=== PATIENT | female | born 1965 | race Caucasian/White ===

== ENCOUNTER → 2016-11-28 | Outpatient (CLI) | payer OTHER | LOC: FIMAGING 13:24 | PROVIDERS: ATTEND Family Medicine | DX: R94.5 Abnormal results of liver function studies (principal); E66.9 Obesity, unspecified; K76.0 Fatty (change of) liver, not elsewhere classified ==

== ENCOUNTER → 2016-12-17 | Outpatient (CLI) | payer OTHER | LOC: FIMAGING 08:47 | PROVIDERS: ATTEND Family Medicine | DX: Z12.31 Encounter for screening mammogram for malignant neoplasm of breast (principal); Z80.3 Family history of malignant neoplasm of breast | CPT/HCPCS: G0202 ==

== ENCOUNTER 2017-04-25 20:02 | Inpatient (IN) | payer OTHER ==
[2017-04-25] MEDS ORDERED: IPRATROPIUM/ALBUTEROL 3 ML DEYVIAL IH ONE (20:19)
[2017-04-25] MEDS ORDERED: ALBUTEROL 3 ML DEYVIAL IH ONE ×2 (20:30→21:24)
[2017-04-25] MEDS ORDERED: predniSONE 20 MG TAB PO ONE (20:30)
--- NOTE | 2017-04-25 20:40 | EDPHY ---
H & P Stated Complaint: Saturday SOB,cough &wheeze,Wed productive,temporal CORREA Time Seen by Provider: 04/25/17 20:16 HPI/ROS: CHIEF COMPLAINT: Cough, shortness of breath, headache HISTORY OF PRESENT ILLNESS: A 51-year-old female with a history of asthma presents reporting that she developed sinus congestion and upper respiratory infection symptoms 5 days ago. Developed a cough 4 days ago. Cough was productive of sputum 3 days ago. Patient reported asthma exacerbation with tightness in her chest starting yesterday. Today she notes increased sinus congestion and facial pain. Also reporting feeling poorly with headache, nausea , decreased appetite. No chest pain with the exception of a tightness related to which she feels is her asthma. No fever. Did receive an influenza vaccination this year. Denies body aches. Denies diarrhea. REVIEW OF SYSTEMS: Aside from elements discussed in the HPI, a comprehensive 10-point review of systems was reviewed and is negative. PAST MEDICAL HISTORY: Type 2 diabetes, asthma, significant dysmenorrhea. SOCIAL HISTORY: Former labor and delivery nurse, currently works as a business analysis analyst. VITAL SIGNS Reviewed by me. Initial heart rate 90, respiratory rate 16, temperature 37.3, O2 sat 91% on room air GENERAL: Well-developed, well-nourished, no obvious respiratory distress. Occasional cough. HEENT: Atraumatic. Eyes: No icterus, no injection. Mouth: moist mucous membranes. No erythema or lesions. Neck: supple with no adenopathy. LUNGS: Wheezy cough, diminished breath sounds. No rhonchi auscultated. CARDIAC: Regular rate and rhythm, systolic murmur. ABDOMEN: Soft, moderately obese, nontender, nondistended. BACK: No CVA tenderness. EXTREMITIES: No trauma. No edema. Range of motion is normal throughout. NEURO: Alert and oriented, grossly nonfocal. SKIN: Warm and dry, no rash. PSYCHIATRIC: Normal mentation, no agitation. - Personal History LMP (Females 10-55): IUD In Place Tetanus Vaccine Date: 2009 - Medical/Surgical History Hx Asthma: Yes Hx Chronic Respiratory Disease: No Hx Diabetes: Yes Hx Cardiac Disease: No Hx Renal Disease: No Hx Cirrhosis: No Hx Alcoholism: No Hx HIV/AIDS: No Hx Splenectomy or Spleen Trauma: No Other PMH: Asthma. DM2, kidney stones. shoulder repair, urinary stent, L knee scope x2 - Social History Smoking Status: Never smoked Constitutional: Initial Vital Signs Temperature (C) 37.3 C 04/25/17 20:09 Heart Rate 90 04/25/17 20:09 Respiratory Rate 16 04/25/17 20:09 Blood Pressure 121/76 H 04/25/17 20:09 O2 Sat (%) 91 L 04/25/17 20:09 O2 Delivery Mode Nasal Cannula O2 (L/minute) 2 Allergies/Adverse Reactions: tramadol [Tramadol] Allergy (Severe, Verified 01/21/16 18:18) Hives alprazolam [From Xanax] Allergy (Intermediate, Verified 04/25/17 20:07) Hives bacitracin [Bacitracin] Allergy (Intermediate, Verified 04/25/17 20:07) Hives hydrocodone bitartrate [From Vicodin] Allergy (Intermediate, Verified 04/25/17 20:07) Hives Latex, Natural Rubber Allergy (Intermediate, Verified 04/25/17 20:07) Rash mupirocin [From Bactroban] Allergy (Intermediate, Verified 04/25/17 20:07) Hives mupirocin calcium [From Bactroban] Allergy (Intermediate, Verified 04/25/17 20: 07) Hives neomycin [Neomycin] Allergy (Intermediate, Verified 04/25/17 20:07) Hives oxycodone HCl [From Percocet] Allergy (Intermediate, Verified 04/25/17 20:07) Hives polymyxin B Allergy (Intermediate, Verified 04/25/17 20:07) Hives promethazine HCl [From Phenergan] Allergy (Intermediate, Verified 04/25/17 20:07 ) Hives BENZOIN Allergy (Intermediate, Uncoded 04/25/17 20:07) Hives SHRIMP Allergy (Intermediate, Uncoded 04/25/17 20:07) Hives Home Medications: Medication Instructions Recorded Acetaminophen [Tylenol ES 500 mg 12/01/13 (*)] Albuterol Sulfate [Albuterol 12/01/13 Inhaler Hfa] Famotidine [Pepcid 20 MG (*)] 12/01/13 Valacyclovir HCl [Valtrex] 12/01/13 Zolpidem Tartrate [Ambien 10 mg] PRN 12/01/13 Fluticasone Nasal [Flonase Nasal 07/23/15 [place]] metFORMIN HCL [Glucophage 500 mg 1,000 07/23/15 (*)] ZYRTEC 01/21/16 Pulmicort 04/25/17 Medical Decision Making - Diagnostics EKG Interpretation: 12-LEAD EKG: Please see the full report in [facility]. My interpretation: Sinus tachycardia Imaging Results: Imaging Impressions Chest X-Ray 04/25/17 20:30 Impression: Mild peribronchial thickening, with questionable early airspace disease seen at the posterior lung base. ED Course/Re-evaluation: Patient received an albuterol neb and a DuoNeb. She was given 60 mg of prednisone by mouth. Influenza swab was sent. Following the neb treatments the patient reports improvement in her air flow. Influenza swab is positive for influenza A. Chest x-ray demonstrates peribronchial cuffing with questionable development of airspace disease on the lateral image in the posterior lung base . On re-examination the patient is now noted to be hypoxic to 87% on room air. This may be some somewhat the results of the neb treatments. She has also developed tachycardia with a heart rate of 111. IV was established and the patient received a L normal saline, as well as Tylenol. She was screened for sepsis. On initial evaluation, the patient was not tachycardic, tachypneic, or febrile. After receiving neb treatments, however, the patient developed tachycardia but also developed hypoxemia with a saturation of 86% on room air with a good waveform. She does have a lactic acid of 2.4 , with a normal white count, normal INR, normal creatinine, normal platelets, normal bilirubin. Severe Sepsis/Septic Shock Care Note The patient presents to the ED with influenza A identified as an acute infection. The patient did developed tachycardia and hypoxemia after receiving neb treatments. Her elevated heart rate, in conjunction with her hypoxemia resulted in a positive screen for sepsis. She does have an elevated lactic acid and thus met criteria for severe sepsis. This condition was identified by myself at 10:30 p.m.. The patients vital signs are 128/72, heart rate 102, respiratory rate 20, O2 sat as low as 86% on room air, temperature 37.3degrees. The patient has a venous lactic acid performed within 3 hours of the identification of sepsis which was found to be 2.4. The patient has blood cultures drawn but did not receive antibiotics as she has a positive influenza a screen. Patient's course was discussed with Dr. Ivan Medina. She will be admitted to the medicine service at [facility] for supportive care. Differential Diagnosis: Differential diagnosis for the patient's shortness of breath was considered including but not limited to pulmonary infectious processes, asthma exacerbation , influenza, pneumonia, bronchitis, pulmonary emboli, pulmonary edema, congestive heart failure, and cardiac causes. Consult/Admit Bed Type: Dr. Ivan Francisco, [facility] - Data Points Laboratory Results: Laboratory Results 04/25/17 21:35 04/25/17 21:35 04/25/17 04/25/17 04/25/17 21:35 21:35 21:35 WBC 4.67 10^3/uL 10^3/uL (3.80-9.50) RBC 3.73 10^6/uL L 10^6/uL (4.18-5.33) Hgb 13.2 g/dL g/dL (12.6-16.3) Hct 37.8 % L % (38.0-47.0) MCV 101.3 fL H fL (81.5-99.8) MCH 35.4 pg H pg (27.9-34.1) MCHC 34.9 g/dL g/dL (32.4-36.7) RDW 13.2 % % (11.5-15.2) Plt Count 83 10^3/uL L 10^3/uL (150-400) MPV 8.6 fL L fL (8.7-11.7) Neut % (Auto) 51.5 % % (39.3-74.2) Lymph % (Auto) 38.5 % % (15.0-45.0) [place] % (Auto) 9.4 % % (4.5-13.0) Eos % (Auto) 0.0 % L % (0.6-7.6) Baso % (Auto) 0.4 % % (0.3-1.7) Nucleat RBC Rel Count 0.0 % % (0.0-0.2) Absolute Neuts (auto) 2.40 10^3/uL 10^3/uL (1.70-6.50) Absolute Lymphs (auto) 1.80 10^3/uL 10^3/uL (1.00-3.00) Absolute Monos (auto) 0.44 10^3/uL 10^3/uL (0.30-0.80) Absolute Eos (auto) 0.00 10^3/uL L 10^3/uL (0.03-0.40) Absolute Basos (auto) 0.02 10^3/uL 10^3/uL (0.02-0.10) Absolute Nucleated RBC 0.00 10^3/uL 10^3/uL (0-0.01) Immature Gran % 0.2 % % (0.0-1.1) Immature Gran # 0.01 10^3/uL 10^3/uL (0.00-0.10) PT 13.7 SEC SEC (12.0-15.0) INR 1.06 (0.83-1.16) APTT 31.4 SEC SEC (23.0-38.0) VBG Lactic Acid Sodium 142 mEq/L mEq/L (134-144) Potassium 3.4 mEq/L L mEq/L (3.5-5.2) Chloride 102 mEq/L mEq/L (97-110) Carbon Dioxide 23 mEq/l mEq/l (22-31) Anion Gap 17 mEq/L H mEq/L (8-16) BUN 8 mg/dL mg/dL (7-23) Creatinine 0.6 mg/dL mg/dL (0.6-1.0) Estimated GFR > 60 Glucose 199 mg/dL H mg/dL (70-100) Calcium 9.0 mg/dL mg/dL (8.5-10.4) Total Bilirubin 0.6 mg/dL mg/dL (0.1-1.4) Influenza A,B Rapid 04/25/17 04/25/17 21:35 20:30 WBC RBC Hgb Hct MCV MCH MCHC RDW Plt Count MPV Neut % (Auto) Lymph % (Auto) [place] % (Auto) Eos % (Auto) Baso % (Auto) Nucleat RBC Rel Count Absolute Neuts (auto) Absolute Lymphs (auto) Absolute Monos (auto) Absolute Eos (auto) Absolute Basos (auto) Absolute Nucleated RBC Immature Gran % Immature Gran # PT INR APTT VBG Lactic Acid 2.4 mmol/L H mmol/L (0.7-2.1) Sodium Potassium Chloride Carbon Dioxide Anion Gap BUN Creatinine Estimated GFR Glucose Calcium Total Bilirubin Influenza A,B Rapid POSITIVE FOR FLU A H (NEGATIVE) Medications Given: Discontinued Medications Albuterol (Proventil Neb) 3 ml IH EDNOW ONE Stop: 04/25/17 20:31 Last Admin: 04/25/17 20:53 Dose: 3 ml Albuterol (Proventil Neb) 3 ml IH EDNOW ONE Stop: 04/25/17 21:25 Last Admin: 04/25/17 21:47 Dose: 3 ml Albuterol/Ipratropium (Duoneb) 3 ml IH EDNOW ONE Stop: 04/25/17 20:20 Last Admin: 04/25/17 20:33 Dose: 3 ml Sodium Chloride (Ns) 1,000 mls @ 0 mls/hr IV ONCE ONE; Wide Open PRN Reason: Protocol Stop: 04/25/17 21:55 Last Admin: 04/25/17 21:59 Dose: 1,000 mls Prednisone (Prednisone) 60 mg PO EDNOW ONE Stop: 04/25/17 20:31 Last Admin: 04/25/17 20:49 Dose: 60 mg Departure - Departure Disposition: [facility] Inpatient Acute Clinical Impression: Hypoxemia, Influenza A Dyspnea Qualifiers: Dyspnea type: shortness of breath Qualified Code(s): R06.02 - Shortness of breath; R06.00 - Dyspnea, unspecified; R06.01 - Orthopnea Referrals: Kandy Will MD [Primary Care Provider] - As per Instructions
--- NOTE | 2017-04-25 21:19 | CPEKG ---
Heart Rate: 108 RR Interval: 556 P-R Interval: 124 QRSD Interval: 84 QT Interval: 352 QTC Interval: 472 P [place]: 4 QRS [place]: 28 T Wave [place]: 2 EKG Severity - OTHERWISE NORMAL ECG - EKG Impression: SINUS TACHYCARDIA Electronically Signed By: Yogi Fuentes 26-Apr-2017 20:38:39
[2017-04-25] MEDS ORDERED: NS 1,000 ML IV ONE (21:54)
[2017-04-25 21:56] LABS: % IMMATURE GRANULYOCYTES 0.2 % (0.0-1.1); ABSOLUTE IMMATURE GRANULOCYTES 0.01 10^3/uL (0.00-0.10); ADD DIFF? NO; ADD MORPH? NO; ADD SCAN? NO; ATYPICAL LYMPHOCYTE FLAG 10 (0-99); FRAGMENT RBC FLAG 0 (0-99); HEMATOCRIT 37.8 % (38.0-47.0); HEMOGLOBIN 13.2 g/dL (12.6-16.3); LEFT SHIFT FLG 0 (0-99); LIPEMIA HEMOLYSIS FLAG 90 (0-99); MEAN CELL HEMOGLOBIN 35.4 pg (27.9-34.1); MEAN CELL HEMOGLOBIN CONCENTR. 34.9 g/dL (32.4-36.7); MEAN CELL VOLUME 101.3 fL (81.5-99.8); MEAN PLATELET VOLUME 8.6 fL (8.7-11.7); PLATELET CLUMPS FLAG 10 (0-99); PLATELET COUNT 83 10^3/uL (150-400); RED BLOOD CELL COUNT 3.73 10^6/uL (4.18-5.33); RED CELL DISTRIBUTION WIDTH 13.2 % (11.5-15.2)
[2017-04-25 22:08] LABS: INR 1.06 (0.83-1.16); PROTIME(PATIENT) 13.7 SEC (12.0-15.0)
[2017-04-25 22:09] LABS: APTT 31.4 SEC (23.0-38.0)
[2017-04-25 22:10] LABS: ANION GAP 17 mEq/L (8-16); BILIRUBIN,TOTAL 0.6 mg/dL (0.1-1.4); CARBON DIOXIDE 23 mEq/l (22-31); CHLORIDE 102 mEq/L (97-110); CREATININE 0.6 mg/dL (0.6-1.0); GLOMERULAR FILTRATION RATE > 60; GLUCOSE 199 mg/dL (70-100); POTASSIUM 3.4 mEq/L (3.5-5.2); SODIUM 142 mEq/L (134-144)
[2017-04-25] MEDS ORDERED: NS 3,100 ML IV ONE ×2 (22:25→22:53)
[2017-04-25] MEDS ORDERED: ACETAMINOPHEN 500 MG TAB PO ONE (22:29)
[2017-04-25] MEDS ORDERED: ONDANSETRON DISINTEGRATING 4 MG TAB PO PRN (22:35)
[2017-04-25] MEDS ORDERED: ONDANSETRON 4 MG/2 ML VIAL IVP PRN (22:35)
[2017-04-25 22:36] LABS: COLOR YELLOW; LEUKOCYTE ESTERASE,URINE 2+ (NEGATIVE); NITRITE,URINE NEGATIVE (NEGATIVE); PH,URINE 5.5 (5.0-7.5)
[2017-04-25 22:50] LABS: BACTERIA 1+ /hpf (NONE SEEN); MUCUS 1+ /lpf (NONE-1+)
--- NOTE | 2017-04-26 00:29 | PDGENHP ---
History and Physical - Chief Complaint Shortness of breath - History of Present Illness 51 yo F w/ asthma, NIDDM, and hypothyroid presents with fatigue and shortness of breath. Patient first noticed some congestion on Saturday. This was followed by cough, fatigue, and subjective fevers. As this progressed she also began to have shortness of breath, which became activity limiting earlier today. In the ED she was noted to be influenza A positive. She was also mildly hypoxic so she was admitted for observation. History Information - Allergies/Home Medication List Allergies/Adverse Reactions: tramadol [Tramadol] Allergy (Severe, Verified 01/21/16 18:18) Hives alprazolam [From Xanax] Allergy (Intermediate, Verified 04/25/17 20:07) Hives bacitracin [Bacitracin] Allergy (Intermediate, Verified 04/25/17 20:07) Hives hydrocodone bitartrate [From Vicodin] Allergy (Intermediate, Verified 04/25/17 20:07) Hives Latex, Natural Rubber Allergy (Intermediate, Verified 04/25/17 20:07) Rash mupirocin [From Bactroban] Allergy (Intermediate, Verified 04/25/17 20:07) Hives mupirocin calcium [From Bactroban] Allergy (Intermediate, Verified 04/25/17 20: 07) Hives neomycin [Neomycin] Allergy (Intermediate, Verified 04/25/17 20:07) Hives oxycodone HCl [From Percocet] Allergy (Intermediate, Verified 04/25/17 20:07) Hives polymyxin B Allergy (Intermediate, Verified 04/25/17 20:07) Hives promethazine HCl [From Phenergan] Allergy (Intermediate, Verified 04/25/17 20:07 ) Hives BENZOIN Allergy (Intermediate, Uncoded 04/25/17 20:07) Hives SHRIMP Allergy (Intermediate, Uncoded 04/25/17 20:07) Hives Home Medications: Acetaminophen [Tylenol ES 500 mg (*)] 12/01/13 [Last Taken Unknown] Albuterol Sulfate [Albuterol Inhaler Hfa] 12/01/13 [Last Taken Unknown] Famotidine [Pepcid 20 MG (*)] 12/01/13 [Last Taken 07/22/15] Valacyclovir HCl [Valtrex] 12/01/13 [Last Taken Unknown] Zolpidem Tartrate [Ambien 10 mg] PRN 12/01/13 [Last Taken 07/22/15] Fluticasone Nasal [Flonase Nasal [place]] 07/23/15 [Last Taken Unknown] metFORMIN HCL [Glucophage 500 mg (*)] 1,000 07/23/15 [Last Taken 07/23/15] ZYRTEC 01/21/16 [Last Taken Unknown] Pulmicort 04/25/17 [Last Taken Unknown] I have personally reviewed and updated: family history, medical history - Past Medical History asthma, diabetes type 2 - Family History Positive for: cancer - Social History Smoking Status: Never smoked Review of Systems Review of Systems: ROS: 10pt was reviewed & negative except for what was stated in HPI & below Physical Exam Physical Exam: Temp Pulse Resp BP Pulse Ox 37.0 C 88 16 112/67 93 04/26/17 00:17 04/26/17 00:17 04/26/17 00:17 04/26/17 00:17 04/26/17 00:17 O2 (L/minute) 2 Constitutional: no apparent distress, obese Eyes: PERRL, EOMI Ears, Nose, Mouth, Throat: moist mucous membranes, no oral mucosal ulcers Cardiovascular: regular rate and rhythym, no murmur, rub, or gallop Respiratory: no respiratory distress, expiratory wheeze (Mild, diffuse), rhonchi Gastrointestinal: normoactive bowel sounds, soft, non-tender abdomen Skin: warm, normal color Musculoskeletal: full muscle strength, no muscle tenderness Neurologic: AAOx3, CN II-XII Intact Psychiatric: interacting appropriately, not anxious Lab Data & Imaging Review 04/25/17 21:35 04/25/17 21:35 WBC 4.67 10^3/uL (3.80-9.50) 04/25/17 21:35 RBC 3.73 10^6/uL (4.18-5.33) L 04/25/17 21:35 Hgb 13.2 g/dL (12.6-16.3) 04/25/17 21:35 Hct 37.8 % (38.0-47.0) L 04/25/17 21:35 MCV 101.3 fL (81.5-99.8) H 04/25/17 21:35 MCH 35.4 pg (27.9-34.1) H 04/25/17 21:35 MCHC 34.9 g/dL (32.4-36.7) 04/25/17 21:35 RDW 13.2 % (11.5-15.2) 04/25/17 21:35 Plt Count 83 10^3/uL (150-400) L 04/25/17 21:35 MPV 8.6 fL (8.7-11.7) L 04/25/17 21:35 Neut % (Auto) 51.5 % (39.3-74.2) 04/25/17 21:35 Lymph % (Auto) 38.5 % (15.0-45.0) 04/25/17 21:35 [place] % (Auto) 9.4 % (4.5-13.0) 04/25/17 21:35 Eos % (Auto) 0.0 % (0.6-7.6) L 04/25/17 21:35 Baso % (Auto) 0.4 % (0.3-1.7) 04/25/17 21:35 Nucleat RBC Rel Count 0.0 % (0.0-0.2) 04/25/17 21:35 Absolute Neuts (auto) 2.40 10^3/uL (1.70-6.50) 04/25/17 21:35 Absolute Lymphs (auto) 1.80 10^3/uL (1.00-3.00) 04/25/17 21:35 Absolute Monos (auto) 0.44 10^3/uL (0.30-0.80) 04/25/17 21:35 Absolute Eos (auto) 0.00 10^3/uL (0.03-0.40) L 04/25/17 21:35 Absolute Basos (auto) 0.02 10^3/uL (0.02-0.10) 04/25/17 21:35 Absolute Nucleated RBC 0.00 10^3/uL (0-0.01) 04/25/17 21:35 Immature Gran % 0.2 % (0.0-1.1) 04/25/17 21:35 Immature Gran # 0.01 10^3/uL (0.00-0.10) 04/25/17 21:35 PT 13.7 SEC (12.0-15.0) 04/25/17 21:35 INR 1.06 (0.83-1.16) 04/25/17 21:35 APTT 31.4 SEC (23.0-38.0) 04/25/17 21:35 VBG Lactic Acid 3.5 mmol/L (0.7-2.1) H D 04/25/17 22:53 Sodium 142 mEq/L (134-144) 04/25/17 21:35 Potassium 3.4 mEq/L (3.5-5.2) L 04/25/17 21:35 Chloride 102 mEq/L (97-110) 04/25/17 21:35 Carbon Dioxide 23 mEq/l (22-31) 04/25/17 21:35 Anion Gap 17 mEq/L (8-16) H 04/25/17 21:35 BUN 8 mg/dL (7-23) 04/25/17 21:35 Creatinine 0.6 mg/dL (0.6-1.0) 04/25/17 21:35 Estimated GFR > 60 04/25/17 21:35 Glucose 199 mg/dL (70-100) H 04/25/17 21:35 Calcium 9.0 mg/dL (8.5-10.4) 04/25/17 21:35 Total Bilirubin 0.6 mg/dL (0.1-1.4) 04/25/17 21:35 Urine Color YELLOW 04/25/17 22:35 Urine Appearance CLEAR 04/25/17 22:35 Urine pH 5.5 (5.0-7.5) 04/25/17 22:35 Ur Specific [place] <= 1.005 (1.002-1.030) 04/25/17 22:35 Urine Protein NEGATIVE (NEGATIVE) 04/25/17 22:35 Urine Ketones NEGATIVE (NEGATIVE) 04/25/17 22:35 Urine Blood TRACE (NEGATIVE) H 04/25/17 22:35 Urine Nitrate NEGATIVE (NEGATIVE) 04/25/17 22:35 Urine Bilirubin NEGATIVE (NEGATIVE) 04/25/17 22:35 Urine Urobilinogen 0.2 EU (0.2-1.0) 04/25/17 22:35 Ur Leukocyte Esterase 2+ (NEGATIVE) H 04/25/17 22:35 Urine RBC 5-10 /hpf (0-3) H 04/25/17 22:35 Urine WBC 5-10 /hpf (0-3) H 04/25/17 22:35 Ur Epithelial Cells TRACE /lpf (NONE-1+) 04/25/17 22:35 Urine Bacteria 1+ /hpf (NONE SEEN) H 04/25/17 22:35 Urine Mucus 1+ /lpf (NONE-1+) 04/25/17 22:35 Urine Glucose NEGATIVE (NEGATIVE) 04/25/17 22:35 Influenza A,B Rapid POSITIVE FOR FLU A (NEGATIVE) H 04/25/17 20:30 Imaging Review: CXR w/ peribronchial thickening, possible early PNA in posterior lung base. Visualized and Interpreted EKG results: Yes EKG Interpretation: Positive for: normal sinsus rhythm Assessment & Plan Assessment: 51 yo F presents with asthma exacerbation 2/2 influenza. Plan: 1. Asthma with acute exacerbation - As a result of confirmed influenza A. Overall appears mild as patient is not in respiratory distress and only mildly hypoxic at this time. - Albuterol q4h scheduled + q2h PRN - Prednisone x5 days - Tamiflu despite late presentation 2/2 pulmonary disease and hospital admission - Restart home inhalers once returned to baseline 2. AHRF - Mild and related to above. Monitor and wean O2 as able. 3. NIDDM - On metformin 1000 BID as outpatient, will continue. 4. Hypothyroid - On LTX as outpatient. Diet - Regular Code - Full Ppx - LMWH Dispo - Admit to observation status
[2017-04-26] MEDS: ALBUTEROL 3 ML DEYVIAL IH SCH ×7 (00:48→21:36)
[2017-04-26] MEDS: OSELTAMIVIR PHOSPHATE 75 MG CAP PO SCH ×2 (01:09→09:14)
[2017-04-26 05:53] LABS: ANION GAP 12 mEq/L (8-16); CALCIUM 8.4 mg/dL (8.5-10.4); CARBON DIOXIDE 19 mEq/l (22-31); CHLORIDE 110 mEq/L (97-110); CREATININE 0.6 mg/dL (0.6-1.0); GLOMERULAR FILTRATION RATE > 60; GLUCOSE 332 mg/dL (70-100); SODIUM 141 mEq/L (134-144)
[2017-04-26 06:00] LABS: % IMMATURE GRANULYOCYTES 0.3 % (0.0-1.1); ABSOLUTE IMMATURE GRANULOCYTES 0.01 10^3/uL (0.00-0.10); ADD DIFF? NO; ADD MORPH? NO; ADD SCAN? NO; ATYPICAL LYMPHOCYTE FLAG 30 (0-99); FRAGMENT RBC FLAG 0 (0-99); HEMATOCRIT 36.4 % (38.0-47.0); HEMOGLOBIN 12.6 g/dL (12.6-16.3); LEFT SHIFT FLG 30 (0-99); LIPEMIA HEMOLYSIS FLAG 90 (0-99); MEAN CELL HEMOGLOBIN 35.7 pg (27.9-34.1); MEAN CELL HEMOGLOBIN CONCENTR. 34.6 g/dL (32.4-36.7); MEAN CELL VOLUME 103.1 fL (81.5-99.8); MEAN PLATELET VOLUME 9.1 fL (8.7-11.7); PLATELET CLUMPS FLAG 0 (0-99); PLATELET COUNT 70 10^3/uL (150-400); RED BLOOD CELL COUNT 3.53 10^6/uL (4.18-5.33); RED CELL DISTRIBUTION WIDTH 13.2 % (11.5-15.2)
[2017-04-26] MEDS ORDERED: metFORMIN HCL 500 MG TAB PO SCH (08:00)
[2017-04-26] MEDS ORDERED: ENOXAPARIN 40 MG/0.4 ML SYR SC SCH (09:00)
[2017-04-26] MEDS: predniSONE 20 MG TAB PO SCH (09:14)
[2017-04-26] MEDS ORDERED: NS 1,000 ML IV SCH (10:45)
[2017-04-26] MEDS: ACETAMINOPHEN 325 MG TAB PO PRN ×2 (11:17→22:56)
[2017-04-26] MEDS ORDERED: D50W 25 GM/50 ML SYR IVP PRN (12:15)
[2017-04-26] MEDS: INSULIN REGULAR HUMAN 100 UNIT/ML SC SCH ×3 (12:30→21:21)
--- NOTE | 2017-04-26 14:18 | ASMTCMCOM ---
CM Note CM Note Notes: 04/26/2017 Case Management Note Reviewed chart. There are no case management d/c needs identified d/t pt age, employment status and activity levels prior to admission. There are no PT or OT evals ordered at this time. Case Management d/c poc: Home independent when medically stable with follow up as directed. Case Management available if needs change. Date Signed: 04/26/2017 02:18 PM Electronically Signed By:María Troy RN
[2017-04-26] MEDS ORDERED: GUAIFENESIN/DM 10 ML UDCUP PO PRN (16:03)
--- NOTE | 2017-04-26 16:33 | PDMN ---
Medical Necessity Medical necessity: Patient meets INPT criteria per phyician note and MCG M-60 Asthma - (asthma exacerbation w/ URT symptoms; hypoxemia/O2 sat 87% on RA in ED ; metabolic acidosis/lactic acid to 3.5 on admission; positive for Influenza A; LOS will be > 2 midnights for ongoing supplemental O2 need, IV hydration, Tamiflu.)
[2017-04-26] MEDS: BENZONATATE 100 MG CAP PO PRN (21:29)
--- NOTE | 2017-04-26 22:21 | HOSPPROG ---
Hospitalist Progress Note Assessment/Plan: Assessment: 51 yo F presents with asthma exacerbation 2/2 influenza. Plan: 1. Asthma with acute exacerbation. Evidenced by expiratory wheezes, hypoxia ( SpO2 87% on RA), cough, 2/2 influenza - Cont Pred 2/5, cont scheduled nebs and PRN albuterol - remains clinically unresolved, requiring ongoing supplemental oxygen 2/2 hypoxia 2. Influenza A. Given severity of illness, cont Tamiflu D#2/ 3. Metabolic Acidosis. 2/2 lactic acid, unclear whether 2/2 hypotension vs. metformin effect in setting of infxn - repeat vLact 3.0 when not hypotensive, indicating possibly 2/2 metformin - cont 1/2 NS for clearance - repeat level in AM, or if hypotensive - temporarily hold metformin 4. DM2 w/ hyperglycemia. Stop metformin given lactic acidosis, start ISS 4. Hypothyroid - On LTX as outpatient. Diet - Regular Code - Full Ppx - LMWH Dispo. Upgrade to inpatient admission status re: anticipated LOS > 48hrs for reasonable medical necessity for unresolved asthma exacerbation and metabolic acidosis. Subjective: patient resports ongoing cough, feels short of breath w/ activity Objective: Vital Signs Temp Pulse Resp BP Pulse Ox 36.7 C 95 18 127/64 H 95 04/26/17 19:27 04/26/17 21:39 04/26/17 21:39 04/26/17 19:27 04/26/17 21:39 04/25/17 04/26/17 04/27/17 05:59 05:59 05:59 Intake Total 960 Balance 960 PT 13.7 SEC (12.0-15.0) 04/25/17 21:35 INR 1.06 (0.83-1.16) 04/25/17 21:35 - Physical Exam Constitutional: no apparent distress, appears nourished, chronically ill appearing, uncomfortable Cardiovascular: regular rate and rhythym, no murmur, rub, or gallop, No edema Respiratory: reduced air movement (on expiration), other (cough triggered w/ expiration), No expiratory wheeze, No bronchial breath sounds, No respiratory distress Gastrointestinal: normoactive bowel sounds, soft, non-tender abdomen, no palpable masses Neurologic: AAOx3, sensation intact bilaterally, No weakness, No facial droop Psychiatric: interacting appropriately, not anxious, not encephalopathic, thought process linear ICD10 Worksheet Patient Problems: Problems Problem Status Onset Hypoxemia Acute Kidney stone Acute UTI (urinary tract infection) Acute Influenza A Acute Dyspnea Acute
[2017-04-26] MEDS ORDERED: 1/2 NS 1,000 ML IV SCH (22:30)
[2017-04-26] MEDS ORDERED: BUDESONIDE 0.25MG/2ML DEYVIAL (5/POUCH) IH PRN (22:44)
[2017-04-27] MEDS: BENZONATATE 100 MG CAP PO PRN ×3 (04:54→21:16)
[2017-04-27] MEDS: LEVOTHYROXINE 50 MCG TAB PO SCH (04:54)
[2017-04-27 06:17] LABS: ANION GAP 8 mEq/L (8-16); CALCIUM 8.6 mg/dL (8.5-10.4); CARBON DIOXIDE 25 mEq/l (22-31); CHLORIDE 110 mEq/L (97-110); CREATININE 0.6 mg/dL (0.6-1.0); GLOMERULAR FILTRATION RATE > 60; GLUCOSE 106 mg/dL (70-100); SODIUM 143 mEq/L (134-144)
[2017-04-27] MEDS: predniSONE 20 MG TAB PO SCH (08:40)
[2017-04-27] MEDS: MULTIVITAMINS 1 EACH TAB PO SCH (08:40)
[2017-04-27] MEDS: INSULIN REGULAR HUMAN 100 UNIT/ML SC SCH ×4 (08:40→21:17)
[2017-04-27] MEDS: OSELTAMIVIR PHOSPHATE 75 MG CAP PO SCH ×2 (08:40→21:16)
[2017-04-27] MEDS: ALBUTEROL 3 ML DEYVIAL IH SCH ×4 (08:49→22:08)
[2017-04-27] MEDS ORDERED: Herbals/Supplements -Info Only PO SCH (09:00)
[2017-04-27] MEDS: FLUTICASONE NASAL 120 SPRAYS/16 GM MDI EACHNARE SCH (10:28)
--- NOTE | 2017-04-27 11:04 | HOSPPROG ---
Hospitalist Progress Note Assessment/Plan: # flu A with RAD exacerbation - agree with tamiflu and prednisone - recheck CXR given crackles (although they cleared with cough) - check pct - still hypoxic # thrombocytopenia - acute on chronic - follow, partly d/t influenza # lactic acidosis - resolved # DM2 - hold metformin, cont SSI # hypothyroid - synthroid Subjective: did not rest well; continues to feel poorly; desats without O2 Objective: Vital Signs Temp Pulse Resp BP Pulse Ox 36.8 C 82 18 107/71 94 04/27/17 09:02 04/27/17 09:02 04/27/17 09:02 04/27/17 09:02 04/27/17 09:02 Laboratory Results 04/27/17 05:36 04/26/17 04/27/17 04/28/17 05:59 05:59 05:59 Intake Total 960 Balance 960 PT 13.7 SEC (12.0-15.0) 04/25/17 21:35 INR 1.06 (0.83-1.16) 04/25/17 21:35 chart reviewed CXR personally reviewed - Physical Exam Constitutional: no apparent distress, appears nourished Cardiovascular: regular rate and rhythym, no murmur, rub, or gallop Respiratory: no respiratory distress, reduced air movement, inspiratory crackles (cleared with cough), other (diminished BS bilat), No bronchial breath sounds Gastrointestinal: normoactive bowel sounds, soft, non-tender abdomen, no palpable masses ICD10 Worksheet Patient Problems: Problems Problem Status Onset Dyspnea Acute Hypoxemia Acute Influenza A Acute Kidney stone Acute UTI (urinary tract infection) Acute
[2017-04-27] MEDS: ACETAMINOPHEN 325 MG TAB PO PRN (13:20)
[2017-04-27] MEDS: ASPIRIN 81 MG CHEWABLE TAB PO SCH (22:11)
[2017-04-28 05:39] LABS: % IMMATURE GRANULYOCYTES 0.2 % (0.0-1.1); ABSOLUTE IMMATURE GRANULOCYTES 0.01 10^3/uL (0.00-0.10); ADD DIFF? NO; ADD MORPH? NO; ADD SCAN? NO; ATYPICAL LYMPHOCYTE FLAG 60 (0-99); FRAGMENT RBC FLAG 0 (0-99); HEMATOCRIT 35.1 % (38.0-47.0); HEMOGLOBIN 12.1 g/dL (12.6-16.3); LEFT SHIFT FLG 0 (0-99); LIPEMIA HEMOLYSIS FLAG 90 (0-99); MEAN CELL HEMOGLOBIN 35.4 pg (27.9-34.1); MEAN CELL HEMOGLOBIN CONCENTR. 34.5 g/dL (32.4-36.7); MEAN CELL VOLUME 102.6 fL (81.5-99.8); MEAN PLATELET VOLUME 9.4 fL (8.7-11.7); PLATELET CLUMPS FLAG 0 (0-99); PLATELET COUNT 80 10^3/uL (150-400); RED BLOOD CELL COUNT 3.42 10^6/uL (4.18-5.33); RED CELL DISTRIBUTION WIDTH 13.3 % (11.5-15.2)
[2017-04-28 05:42] LABS: ANION GAP 11 mEq/L (8-16); CALCIUM 8.9 mg/dL (8.5-10.4); CARBON DIOXIDE 29 mEq/l (22-31); CHLORIDE 105 mEq/L (97-110); CREATININE 0.6 mg/dL (0.6-1.0); GLOMERULAR FILTRATION RATE > 60; GLUCOSE 103 mg/dL (70-100); POTASSIUM 3.7 mEq/L (3.5-5.2); SODIUM 145 mEq/L (134-144)
[2017-04-28] MEDS: LEVOTHYROXINE 50 MCG TAB PO SCH (05:59)
[2017-04-28] MEDS: ALBUTEROL 3 ML DEYVIAL IH SCH ×4 (06:37→21:40)
[2017-04-28] MEDS: predniSONE 20 MG TAB PO SCH (08:41)
[2017-04-28] MEDS: MULTIVITAMINS 1 EACH TAB PO SCH (08:42)
[2017-04-28] MEDS: OSELTAMIVIR PHOSPHATE 75 MG CAP PO SCH ×2 (08:42→21:20)
[2017-04-28] MEDS: FLUTICASONE NASAL 120 SPRAYS/16 GM MDI EACHNARE SCH (08:51)
[2017-04-28] MEDS: INSULIN REGULAR HUMAN 100 UNIT/ML SC SCH ×4 (08:57→21:20)
--- NOTE | 2017-04-28 12:02 | HOSPPROG ---
Hospitalist Progress Note Assessment/Plan: # flu A with RAD exacerbation - agree with tamiflu and prednisone - still hypoxic # acute hypoxic resp failure d/t influenza and RAD exacerbation - still on O2 # suspected superimposed pneumonia - cont levaquin # thrombocytopenia - acute on chronic - follow, partly d/t influenza # lactic acidosis - resolved # DM2 - hold metformin, cont SSI # hypothyroid - synthroid Subjective: feels stronger but still quite poorly Objective: Vital Signs Temp Pulse Resp BP Pulse Ox 36.4 C 74 16 111/70 90 L 04/28/17 11:28 04/28/17 11:28 04/28/17 11:28 04/28/17 11:28 04/28/17 11:28 Laboratory Results 04/28/17 04:59 04/28/17 04:59 04/27/17 04/28/17 04/29/17 05:59 05:59 05:59 Intake Total 960 500 Balance 960 500 PT 13.7 SEC (12.0-15.0) 04/25/17 21:35 INR 1.06 (0.83-1.16) 04/25/17 21:35 CXR personally reviewed - Physical Exam Constitutional: no apparent distress, appears nourished Cardiovascular: regular rate and rhythym, no murmur, rub, or gallop Respiratory: no respiratory distress, expiratory wheeze, inspiratory crackles, No bronchial breath sounds, No aegophony Skin: warm, normal color, no rashes or abrasions, No erythema Neurologic: AAOx3 ICD10 Worksheet Patient Problems: Problems Problem Status Onset Hypoxemia Acute Kidney stone Acute UTI (urinary tract infection) Acute Influenza A Acute Dyspnea Acute
[2017-04-28] MEDS: guaiFENesin 600 MG TAB.ER PO SCH ×2 (12:33→21:20)
--- NOTE | 2017-04-28 16:06 | ASMTCMCOM ---
CM Note CM Note Notes: Reviewed chart regarding discharge plan, pt's progress. Per MD notes, pt w/ Influenza A w/ RAD exacerbation/hypoxic respiratory failure. No PT recs, pt cleared. Anticipate pt will likely discharge independently when medically stable. CM will cont to follow for any potential needs. Current discharge plan: Independent Date Signed: 04/28/2017 04:06 PM Electronically Signed By:Michelle Rangel RN
[2017-04-28] MEDS: FAMOTIDINE 20 MG TAB PO PRN (17:41)
[2017-04-28] MEDS: ASPIRIN 81 MG CHEWABLE TAB PO SCH (21:20)
[2017-04-28 21:38] LABS: GLUCOSE 313 mg/dL (70-100)
[2017-04-29] MEDS: ALBUTEROL 3 ML DEYVIAL IH SCH ×2 (04:49→11:17)
[2017-04-29 05:11] LABS: % IMMATURE GRANULYOCYTES 0.3 % (0.0-1.1); ABSOLUTE IMMATURE GRANULOCYTES 0.02 10^3/uL (0.00-0.10); ADD DIFF? NO; ADD MORPH? NO; ADD SCAN? YES; FRAGMENT RBC FLAG 0 (0-99); HEMATOCRIT 35.4 % (38.0-47.0); HEMOGLOBIN 12.3 g/dL (12.6-16.3); LEFT SHIFT FLG 0 (0-99); LIPEMIA HEMOLYSIS FLAG 90 (0-99); MEAN CELL HEMOGLOBIN 35.1 pg (27.9-34.1); MEAN CELL HEMOGLOBIN CONCENTR. 34.7 g/dL (32.4-36.7); MEAN CELL VOLUME 101.1 fL (81.5-99.8); MEAN PLATELET VOLUME 9.3 fL (8.7-11.7); PLATELET CLUMPS FLAG 10 (0-99); PLATELET COUNT 77 10^3/uL (150-400); RED CELL DISTRIBUTION WIDTH 13.1 % (11.5-15.2)
[2017-04-29 05:23] LABS: ANION GAP 7 mEq/L (8-16); CARBON DIOXIDE 30 mEq/l (22-31); CHLORIDE 106 mEq/L (97-110); CREATININE 0.6 mg/dL (0.6-1.0); GLOMERULAR FILTRATION RATE > 60; GLUCOSE 79 mg/dL (70-100); POTASSIUM 3.6 mEq/L (3.5-5.2); SODIUM 143 mEq/L (134-144)
[2017-04-29 05:33] LABS: ATYPICAL LYMPHOCYTE FLAG 160 (0-99)
[2017-04-29] MEDS: LEVOTHYROXINE 50 MCG TAB PO SCH (05:54)
[2017-04-29 06:03] LABS: SCAN POSITIVE
[2017-04-29 06:11] LABS: MACROCYTES 1+; PLATELET ESTIMATE DECREASED (ADEQ)
[2017-04-29] MEDS: MULTIVITAMINS 1 EACH TAB PO SCH (09:07)
[2017-04-29] MEDS: guaiFENesin 600 MG TAB.ER PO SCH ×2 (09:07→20:07)
[2017-04-29] MEDS: OSELTAMIVIR PHOSPHATE 75 MG CAP PO SCH ×2 (09:08→20:07)
[2017-04-29] MEDS: predniSONE 20 MG TAB PO SCH (09:08)
[2017-04-29] MEDS: FLUTICASONE NASAL 120 SPRAYS/16 GM MDI EACHNARE SCH (09:10)
[2017-04-29] MEDS: FAMOTIDINE 20 MG TAB PO PRN (09:12)
[2017-04-29] MEDS: INSULIN REGULAR HUMAN 100 UNIT/ML SC SCH ×2 (10:37→12:55)
[2017-04-29] MEDS ORDERED: ALBUTEROL 60 PUFFS/8 GM MDI IH PRN ×2 (13:49→13:51)
--- NOTE | 2017-04-29 14:04 | HOSPPROG ---
Hospitalist Progress Note Assessment/Plan: # flu A with RAD exacerbation - cont tamiflu and prednisone - still hypoxic # acute hypoxic resp failure d/t influenza and RAD exacerbation - still on O2 # suspected superimposed pneumonia - cont levaquin # thrombocytopenia - acute on chronic - follow, partly d/t influenza # lactic acidosis - resolved # DM2 - hold metformin, cont SSI # hypothyroid - synthroid Subjective: still needing O2; feeling stronger Objective: Vital Signs Temp Pulse Resp BP Pulse Ox 36.6 C 62 18 121/67 H 86 L 04/29/17 07:50 04/29/17 11:47 04/29/17 11:47 04/29/17 11:47 04/29/17 12:55 Laboratory Results 04/29/17 04:50 04/29/17 04:50 04/28/17 04/29/17 04/30/17 05:59 05:59 05:59 Intake Total 500 Balance 500 PT 13.7 SEC (12.0-15.0) 04/25/17 21:35 INR 1.06 (0.83-1.16) 04/25/17 21:35 - Physical Exam Constitutional: no apparent distress, appears nourished Eyes: anicteric sclera Ears, Nose, Mouth, Throat: hearing normal Cardiovascular: regular rate and rhythym, systolic murmur, No irregularly irregular, No diastolic murmur Respiratory: no respiratory distress, no rales or rhonchi, expiratory wheeze ( cleared with cough) Genitourinary: No mitchell in urethra Skin: warm Musculoskeletal: full muscle strength Neurologic: AAOx3 Psychiatric: interacting appropriately ICD10 Worksheet Patient Problems: Problems Problem Status Onset Hypoxemia Acute Kidney stone Acute UTI (urinary tract infection) Acute Influenza A Acute Dyspnea Acute
[2017-04-29] MEDS: metFORMIN HCL 500 MG TAB PO SCH (18:01)
[2017-04-29] MEDS: ASPIRIN 81 MG CHEWABLE TAB PO SCH (20:07)
[2017-04-30 00:11] VITALS: TEMP 98.2
[2017-04-30 07:28] VITALS: BP 113/60; PULSE 65; RESP 17; O2SAT 94
[2017-04-30] MEDS: LEVOTHYROXINE 50 MCG TAB PO SCH (07:55)
[2017-04-30] MEDS: MULTIVITAMINS 1 EACH TAB PO SCH (07:58)
[2017-04-30] MEDS: metFORMIN HCL 500 MG TAB PO SCH (07:58)
[2017-04-30] MEDS: OSELTAMIVIR PHOSPHATE 75 MG CAP PO SCH (07:58)
[2017-04-30] MEDS: predniSONE 20 MG TAB PO SCH (07:58)
[2017-04-30] MEDS: guaiFENesin 600 MG TAB.ER PO SCH (07:58)
[2017-04-30] MEDS: FLUTICASONE NASAL 120 SPRAYS/16 GM MDI EACHNARE SCH (08:01)
[2017-04-30] MEDS: FAMOTIDINE 20 MG TAB PO PRN (08:04)
--- NOTE | 2017-04-30 12:50 | GDS ---
[f rep st] DISCHARGE SUMMARY FINAL DIAGNOSES: 1. Acute influenza A infection. 2. Asthma and reactive airways disease exacerbation due to the above. 3. Acute hypoxic respiratory failure due to the above. 4. Likely superimposed bacterial pneumonia. 5. Thrombocytopenia, acute on chronic. 6. Lactic acidosis, which is resolved. 7. Diabetes mellitus type 2. 8. Hypothyroid. HOSPITAL COURSE: This is a 51-year-old female admitted with acute respiratory failure secondary to i nfluenza A, in the setting of underlying asthma with reactive airways disease exacerbation, also, alejandra fang has a superimposed bacterial pneumonia. She has been treated appropriately with bronchodilators, Tamiflu, prednisone as well as Levaquin. She had been requiring oxygen until the day of discharge, she has ambulated today and maintained her saturations above 89% on room air. I will discharge her with Levaquin to complete a total of a 7-day course, prednisone to complete a sh ort burst, Tamiflu to complete a 5-day course. I have written her a prescription for a home pulse ox monitor to follow her oxygen saturations. I have also written her an excuse to not return to work u ntil she follows up with her PCP next week. She is comfortable with this plan. BILLING: I spent more than 30 minutes on the day of discharge coordinating care. /[id number]/MODL
--- NOTE | 2017-04-30 16:50 | ASDISCHSUM ---
Discharge Information Plan Status:Home with No Needs Medically Cleared to Leave:04/29/2017 Discharge Date:04/30/2017 12:06 PM CM D/C Disposition:Home, Routine, Self-Care ADT D/C Disposition:Home, Routine, Self-Care Projected Discharge Date:04/30/2017 12:00 AM Transportation at D/C:Family Discharge Delay Reason: Follow-Up Date:04/30/2017 12:00 AM Discharge Slot: Final Diagnosis: Placement Information Patient Contact Information Contact Name:RAQUELAILYN Relationship:Son Address: City:[place] Alternate Phone: [facility] Code:CO Email: Financial Information Financial Class:[employer] [facility] Primary Plan Number:[id number] Secondary Plan Desc: Secondary Plan Number: Assessment Information [facility] CM Progress Note CM Note CM Note Notes: 04/26/2017 Case Management Note Reviewed chart. There are no case management d/c needs identified d/t pt age, employment status and activity levels prior to admission. There are no PT or OT evals ordered at this time. Case Management d/c poc: Home independent when medically stable with follow up as directed. Case Management available if needs change. Date Signed: 04/26/2017 02:18 PM Electronically Signed By:María Troy RN [facility] CM Progress Note CM Note CM Note Notes: Reviewed chart regarding discharge plan, pt's progress. Per notes, pt w/ Influenza A w/ RAD exacerbation/hypoxic respiratory failure. No PT recs, pt cleared. Anticipate pt will likely discharge independently when medically stable. CM will cont to follow for any potential needs. Current discharge plan: Independent Date Signed: 04/28/2017 04:06 PM Electronically Signed By:Michelle Rangel RN Intervention Information
== END 2017-04-30 12:06 | disposition home or self-care (01) | DRG 193 ==
LOC: CED 20:02 → CEDHOLD 22:42 → F3E 04-26 00:06 → OBSVTOIN 04-26 16:04
PROVIDERS: ADMIT Student in an Organized Health Care Education/Training Program; ATTEND Student in an Organized Health Care Education/Training Program
DX: J10.08 Influenza due to other identified influenza virus with other specified pneumonia (principal); J15.9 Unspecified bacterial pneumonia; J45.901 Unspecified asthma with (acute) exacerbation; J96.01 Acute respiratory failure with hypoxia; E11.65 Type 2 diabetes mellitus with hyperglycemia; E03.9 Hypothyroidism, unspecified; D69.6 Thrombocytopenia, unspecified; Z87.442 Personal history of urinary calculi
CPT/HCPCS: 71020-PO; 80048-PO; 81003-PO; 81015-PO; 82247-PO; 82947-QW; 83605-PO; 85025-PO; 85610-PO; 85730-PO; 87400-PO; 97161-GP; G0378; J1815; J1956

== ENCOUNTER 2017-05-09 16:49 | Emergency (ER) | payer OTHER ==
--- NOTE | 2017-05-09 17:12 | CPEKG ---
Heart Rate: 101 RR Interval: 594 P-R Interval: 164 QRSD Interval: 74 QT Interval: 348 QTC Interval: 452 P Terrell: 25 QRS Terrell: 27 T Wave Terrell: 9 EKG Severity - OTHERWISE NORMAL ECG - EKG Impression: SINUS TACHYCARDIA Electronically Signed By: Lee Harrell 09-May-2017 19:55:39
[2017-05-09] MEDS ORDERED: MAG HYDROX/AL HYDROX/SIMETH 30 ML UDCUP PO ONE (17:40)
[2017-05-09] MEDS ORDERED: LIDOCAINE 2% VISCOUS 15 ML UDCUP PO ONE (17:40)
--- NOTE | 2017-05-09 17:40 | EDPHY ---
H & P Stated Complaint: cp, n/v Time Seen by Provider: 05/09/17 17:19 HPI/ROS: Chief Complaint: Nausea, vomiting, epigastric pain HPI: 51-year-old woman with a history of asthma, type 2 diabetes, hyperlipidemia and hypothyroidism. She was recently admitted is Hospital for influenza a and pneumonia. She was discharged 7 days ago and has been doing well in terms of her breathing. Patient has not had to use her inhaler for about 5 days. Patient states that today she was feeling fine until about late morning until she is having nausea and vomiting. Patient states she vomited about 6 times until she finally took some Zofran. After vomiting the last couple times she developed some epigastric pain and pain going up into her chest. At worst about a 5/10. Now is about a 4/10. The pain started about 12 30 this afternoon. She did see little bit of breath flex in her bilious emesis which may been blood. No fevers or chills. No constipation or diarrhea. No substernal chest pain or associated shortness of breath. No sweating. ROS: 10 point Review of Systems is negative except as noted in the HPI. PMH: Asthma, type 2 diabetes, hypothyroidism, hyperlipidemia Social History: No smoking, no alcohol, no recreational drug use Family History: non-contributory Physical Exam: Gen: Awake, Alert, No Distress HEENT: Nose: no rhinorrhea Eyes: PERRLA, EOMI Mouth: Moist mucosa Neck: Supple, no JVD Chest: nontender, lungs clear to auscultation Heart: S1, S2 normal, no murmur Abd: Soft, moderate epigastric tenderness reproducing her presenting complaint, no right upper quadrant tenderness, no guarding Back: no CVA tenderness, no midline tenderness Ext: no edema, non-tender Skin: no rash Neuro: CN II-XII intact, Sensation grossly intact, Strength 5/5 in bilateral upper and lower extremities - Personal History LMP (Females 10-55): IUD In Place Current Tetanus/Diphtheria Vaccine: Yes Current Tetanus Diphtheria and Acellular Pertussis (TDAP): Yes Tetanus Vaccine Date: 2009 - Medical/Surgical History Hx Asthma: Yes Hx Chronic Respiratory Disease: No Hx Diabetes: Yes Hx Cardiac Disease: No Hx Renal Disease: No Hx Cirrhosis: No Hx Alcoholism: No Hx HIV/AIDS: No Hx Splenectomy or Spleen Trauma: No Other PMH: Asthma. DM2, kidney stones. shoulder repair, urinary stent, L knee scope x2, PNA, - Social History Smoking Status: Never smoked Constitutional: Initial Vital Signs Temperature (C) 36.9 C 05/09/17 16:54 Heart Rate 102 H 05/09/17 16:54 Respiratory Rate 16 05/09/17 16:54 Blood Pressure 133/75 H 05/09/17 16:54 O2 Sat (%) 91 L 05/09/17 16:54 O2 Delivery Mode Room Air O2 (L/minute) 2 Allergies/Adverse Reactions: tramadol [Tramadol] Allergy (Severe, Verified 05/09/17 16:53) Hives alprazolam [From Xanax] Allergy (Intermediate, Verified 05/09/17 16:53) Hives bacitracin [Bacitracin] Allergy (Intermediate, Verified 05/09/17 16:53) Hives hydrocodone bitartrate [From Vicodin] Allergy (Intermediate, Verified 05/09/17 16:53) Hives Latex, Natural Rubber Allergy (Intermediate, Verified 05/09/17 16:53) Rash mupirocin [From Bactroban] Allergy (Intermediate, Verified 05/09/17 16:53) Hives mupirocin calcium [From Bactroban] Allergy (Intermediate, Verified 05/09/17 16: 53) Hives neomycin [Neomycin] Allergy (Intermediate, Verified 05/09/17 16:53) Hives oxycodone HCl [From Percocet] Allergy (Intermediate, Verified 05/09/17 16:53) Hives polymyxin B Allergy (Intermediate, Verified 05/09/17 16:53) Hives promethazine HCl [From Phenergan] Allergy (Intermediate, Verified 05/09/17 16:53 ) Hives BENZOIN Allergy (Intermediate, Uncoded 05/09/17 16:53) Hives SHRIMP Allergy (Intermediate, Uncoded 05/09/17 16:53) Hives Home Medications: Medication Instructions Recorded Famotidine [Pepcid 20 MG (*)] 20 mg PO DAILY PRN 12/01/13 Fluticasone Nasal [Flonase Nasal 2 spray EACHNARE DAILY 07/23/15 [place]] metFORMIN HCL [Glucophage 500 mg 1,000 mg PO BIDMEAL 03/05/16 (*)] Budesonide [Pulmicort 0.25MG/2Ml 0.25 mg IH DAILY PRN 04/25/17 Neb (*)] Albuterol [Proventil Inhaler HFA 1 - 2 puffs IH DAILY PRN 04/26/17 (*)] Aspirin [Aspirin 81mg (*)] 81 mg PO HS 04/26/17 Herbals/Supplements -Info Only 1 ea PO DAILY 04/26/17 Ibuprofen [Motrin (*)] 800 mg PO DAILY PRN 04/26/17 Levothyroxine [Synthroid 50 mcg 50 mcg PO DAILY06 04/26/17 (*)] Multivitamins [Multivitamin (*)] 1 each PO DAILY 04/26/17 Benzonatate [Tessalon Pearles] 200 mg PO TID PRN #30 cap 04/30/17 guaiFENesin [Mucinex 600 MG (*)] 1,200 mg PO BID #30 tab.er 04/30/17 Medical Decision Making - Diagnostics EKG Interpretation: ECG time 5:10 p.m., sinus tachycardia with a rate of 101, normal axis, normal intervals, no acute ST or T-wave changes. Imaging Results: Imaging Impressions Chest X-Ray 05/09/17 17:39 Impression: Clear lungs. Resolved left basilar atelectasis versus pneumonia since 4 days prior. Imaging: I viewed and interpreted images myself ED Course/Re-evaluation: 51-year-old with epigastric pain which is likely secondary to Lacy-De Los Santos tear from vomiting. Her ECG is normal. Chest x-ray is negative. Patient is improved. Will discharge with follow-up as an outpatient, return for worsening. - Data Points Laboratory Results: Laboratory Results 05/09/17 17:10 05/09/17 17:10 05/09/17 05/09/17 17:10 17:10 WBC 14.72 10^3/uL H 10^3/uL (3.80-9.50) RBC 4.30 10^6/uL 10^6/uL (4.18-5.33) Hgb 15.3 g/dL g/dL (12.6-16.3) Hct 44.2 % % (38.0-47.0) MCV 102.8 fL H fL (81.5-99.8) MCH 35.6 pg H pg (27.9-34.1) MCHC 34.6 g/dL g/dL (32.4-36.7) RDW 13.2 % % (11.5-15.2) Plt Count 99 10^3/uL L 10^3/uL (150-400) MPV 9.2 fL fL (8.7-11.7) Neut % (Auto) 92.3 % H % (39.3-74.2) Lymph % (Auto) 4.3 % L % (15.0-45.0) [place] % (Auto) 2.5 % L % (4.5-13.0) Eos % (Auto) 0.1 % L % (0.6-7.6) Baso % (Auto) 0.4 % % (0.3-1.7) Nucleat RBC Rel Count 0.0 % % (0.0-0.2) Absolute Neuts (auto) 13.59 10^3/uL H 10^3/uL (1.70-6.50) Absolute Lymphs (auto) 0.63 10^3/uL L 10^3/uL (1.00-3.00) Absolute Monos (auto) 0.37 10^3/uL 10^3/uL (0.30-0.80) Absolute Eos (auto) 0.01 10^3/uL L 10^3/uL (0.03-0.40) Absolute Basos (auto) 0.06 10^3/uL 10^3/uL (0.02-0.10) Absolute Nucleated RBC 0.00 10^3/uL 10^3/uL (0-0.01) Immature Gran % 0.4 % % (0.0-1.1) Immature Gran # 0.06 10^3/uL 10^3/uL (0.00-0.10) Sodium 144 mEq/L mEq/L (134-144) Potassium 4.4 mEq/L mEq/L (3.5-5.2) Chloride 108 mEq/L mEq/L (97-110) Carbon Dioxide 23 mEq/l mEq/l (22-31) Anion Gap 13 mEq/L mEq/L (8-16) BUN 11 mg/dL mg/dL (7-23) Creatinine 0.6 mg/dL mg/dL (0.6-1.0) Estimated GFR > 60 Glucose 186 mg/dL H mg/dL (70-100) Calcium 9.5 mg/dL mg/dL (8.5-10.4) Total Bilirubin 1.1 mg/dL mg/dL (0.1-1.4) AST 126 IU/L H IU/L (14-46) ALT 96 IU/L H IU/L (9-52) Alkaline Phosphatase 165 IU/L H IU/L (38-126) Troponin I < 0.012 ng/mL ng/mL (0.000-0.034) Total Protein 7.2 g/dL g/dL (6.3-8.2) Albumin 4.0 g/dL g/dL (3.5-5.0) Lipase 453 IU/L H IU/L (23-300) Medications Given: Discontinued Medications Al Hydroxide/Mg Hydroxide (Maalox Susp) 30 ml PO ONCE ONE Stop: 05/09/17 17:41 Last Admin: 05/09/17 17:44 Dose: 30 ml Lidocaine (Lidocaine 2% Viscous) 15 ml PO ONCE ONE Stop: 05/09/17 17:41 Last Admin: 05/09/17 17:44 Dose: 15 ml Departure - Departure Disposition: Home, Routine, Self-Care Clinical Impression: Lacy-De Los Santos syndrome Condition: Good Instructions: Lacy-De Los Santos Syndrome (ED) Additional Instructions: Follow up with primary care physician in 2-3 days for further evaluation. Return emergency depart for increasing chest pain, worsening shortness of breath , worsening abdominal pain, uncontrolled nausea vomiting, black stools, or any other concerns. Referrals: Kandy Will MD [Primary Care Provider] - As per Instructions
[2017-05-09 17:44] LABS: PLATELET COUNT 99 10^3/uL (150-400)
[2017-05-09 19:19] VITALS: BP 114/85; PULSE 102; RESP 17; TEMP 98.2; O2SAT 93
== END 2017-05-09 19:17 | disposition home or self-care (01) ==
DX: K22.6 Gastro-esophageal laceration-hemorrhage syndrome (principal); J45.909 Unspecified asthma, uncomplicated; E11.9 Type 2 diabetes mellitus without complications; Z79.82 Long term (current) use of aspirin; Z79.84 Long term (current) use of oral hypoglycemic drugs; Z91.040 Latex allergy status

== ENCOUNTER → 2018-02-08 | Outpatient (CLI) | payer OTHER | LOC: FIMAGING 12:43 | PROVIDERS: ATTEND Family Medicine | DX: Z12.31 Encounter for screening mammogram for malignant neoplasm of breast (principal) ==

== ENCOUNTER → 2018-03-18 | Outpatient (CLI) | payer OTHER ==
[~2018-03-18] MED LIST: IOPAMIDOL (ISOVUE-300) 100 ML BTL ONE
== END ==
LOC: CIMAGING 07:58
PROVIDERS: ATTEND Internal Medicine Hematology & Oncology
DX: R16.1 Splenomegaly, not elsewhere classified (principal); K76.0 Fatty (change of) liver, not elsewhere classified; N20.0 Calculus of kidney; D69.6 Thrombocytopenia, unspecified
CPT/HCPCS: 74160-PO; 82565-PO; Q9967

== ENCOUNTER → 2018-08-15 | Outpatient (CLI) | payer OTHER ==
[~2018-08-15] MED LIST changes: +GADOBUTROL 10 ML VIAL IVP ONE; -IOPAMIDOL (ISOVUE-300) 100 ML BTL ONE
== END ==
LOC: FIMAGING 09:32
PROVIDERS: ATTEND Hospitalist
DX: Z12.31 Encounter for screening mammogram for malignant neoplasm of breast (principal); Z80.3 Family history of malignant neoplasm of breast
CPT/HCPCS: 82565-PO; A9585; C8908